=== PATIENT | female | born 1970 | race Two or more races ===

== ENCOUNTER 2022-09-17 08:07 | Outpatient (CLI) | payer OTHER | END 2022-09-17 08:08 | disposition home or self-care (01) | LOC: LAB 08:07 | DX: R53.82 Chronic fatigue, unspecified (principal); E78.5 Hyperlipidemia, unspecified; E55.9 Vitamin D deficiency, unspecified; A64 Unspecified sexually transmitted disease; N95.1 Menopausal and female climacteric states; E11.9 Type 2 diabetes mellitus without complications; Z12.11 Encounter for screening for malignant neoplasm of colon ==

== ENCOUNTER 2022-09-24 07:21 | Outpatient (CLI) | payer OTHER | END 2022-09-24 07:26 | disposition home or self-care (01) | LOC: LAB 07:21 | DX: R53.82 Chronic fatigue, unspecified (principal); E78.5 Hyperlipidemia, unspecified; E55.9 Vitamin D deficiency, unspecified; A64 Unspecified sexually transmitted disease; N95.1 Menopausal and female climacteric states; D50.9 Iron deficiency anemia, unspecified; E11.9 Type 2 diabetes mellitus without complications; Z12.11 Encounter for screening for malignant neoplasm of colon ==

== ENCOUNTER 2022-10-18 09:26 | Outpatient (CLI) | payer OTHER | END 2022-10-18 09:32 | disposition home or self-care (01) | LOC: MAMO-SONO 09:26 | DX: Z12.31 Encounter for screening mammogram for malignant neoplasm of breast (principal); N64.4 Mastodynia; N64.9 Disorder of breast, unspecified; R10.2 Pelvic and perineal pain ==

== ENCOUNTER 2024-02-03 08:18 | Outpatient (CLI) | payer OTHER ==
[2024-02-03 09:06] LABS: MEAN CELL VOLUME 82.3 fL (80.00-100.00); PLATELET COUNT 299 K/uL (150-450); RED BLOOD COUNT 5.34 M/uL (4.00-6.00)
[2024-02-03 09:51] LABS: ALBUMIN 3.7 gm/dL (3.4-5.0); BILIRUBIN TOTAL 0.43 mg/dL (0.3-1.2); CALCIUM 8.9 mg/dL (8.5-10.1); CHOL HDL RATIO 4.2 (0-5.0); CREATININE SERUM 0.66 mg/dL (0.55-1.02); FREE TRIODOTIRONINE 2.7 pg/ml (2.18-3.98); GFR 94.42; GLOBULINA 3.5 G/DL (2.4-3.5); POTASSIUM 4.47 mEq/L (3.5-5.1); T4 FREE 0.99 NG/ML (0.76-1.46); TOTAL PROTEIN 7.2 gm/dL (6.4-8.2); TSH 2.03 uIU/mL (0.358-3.74)
== END 2024-02-03 08:26 | disposition home or self-care (01) ==
LOC: LAB 08:18
DX: R07.89 Other chest pain (principal); R00.2 Palpitations; I10 Essential (primary) hypertension; E55.9 Vitamin D deficiency, unspecified

== ENCOUNTER 2024-11-21 14:06 | Emergency (ER) | payer OTHER ==
[~2024-11-21] VITALS: Ht 162.6 cm; Wt 90.7 kg
[2024-11-21] MEDS ORDERED: COZAAR100 MG PO (16:38)
[2024-11-21] MEDS ORDERED: TOPROL XL25 M1 (16:39)
[2024-11-21] MEDS ORDERED: ACETAMINOPHEN 500 MG GEL..CAP PO ONE ×2 (19:30→20:07)
[2024-11-21 20:28] LABS: HEMATOCRIT 44.4 % (36.0-45.00); HEMOGLOBIN 15.2 g/dL (12.0-15.00); MEAN CELL VOLUME 82.1 fL (80.00-100.00); MEAN CORPUSCULAR HEMOGLOBIN 28.2 pg (27.00-32.0); MEAN CORPUSCULAR HGB CONC 34.3 g/dl (32.0-36.0); PLATELET COUNT 256 K/uL (150-450); RED CELL DISTRIBUTION WIDTH 15.2 % (11.5-14.5)
[2024-11-21] MEDS ORDERED: OSEL75CA PO (20:50)
[2024-11-21] MEDS ORDERED: GILTUSS COUGH-118 M1 PO (20:50)
[2024-11-21] MEDS ORDERED: ACETAMINOPHEN500 M1 PO (20:50)
== END 2024-11-21 21:01 | disposition home or self-care (01) ==
LOC: ER 14:08
PROVIDERS: Preventive Medicine Public Health & General Preventive Medicine
DX: B34.9 Viral infection, unspecified (principal); J00 Acute nasopharyngitis [common cold]; Z20.822 Contact with and (suspected) exposure to COVID-19; I10 Essential (primary) hypertension